=== PATIENT | male | born 1985 | race Caucasian/White ===

== ENCOUNTER 2017-02-12 19:29 | Emergency (ER) | payer OTHER ==
--- NOTE | ~2017-02-12 | CT2 ---
[facility] A Service of [facility] RADIOLOGY TEXT RESULTS PATIENT: AKHIL MURCIA LOCATION: SED : 85 UNIT #: [id number] AGE: [address]: Donavon Quinonez MD SEX: M ORDER DR: [id number] [facility] [address] [place], [place] [address] [id number] E MR#: [id number] Acc #: [id number] NAME: AKHIL MURCIA. : 1985 SEX: M STUDY DATE/TIME: 02/13/2017 0:19 UNIT: SED ROOM: STUDY DESCRIPTION: CT Abd and Pelv W Cont Attending Physician: Donavon Quinonez M.D. Ordering Physician: Donavon Quinonez M.D. Primary Care Physician: Primary Care Physician No MEDICAL IMAGING REPORT This report is preliminary unless electronic signature is present EXAM CT abdomen and pelvis with contrast INDICATIONS Lower abdomen pain for a few hours, nausea for 1 day. No comparison. TECHNIQUE The patient was given 100 mL of Isovue-370 and axial 5 mm images were obtained through the abdomen and pelvis. This CT exam was performed with one or more of the following radiation dose reduction techniques: Automatic exposure control, adjustment of mA and/or kV according to patient size, and iterative reconstruction. FINDINGS Lung bases are clear. Patient size causes the images to be very grainy. The liver, gallbladder, spleen, pancreas, adrenal glands and kidneys are normal in appearance. The aorta is normal in size and there is no adenopathy. The bowel is normal. The bladder and prostate gland are normal. The bones are unremarkable. There is an anterior abdominal wall hernia. It contains fat only. The opening through the abdominal wall is about 15 mm in diameter. This is at the umbilicus. IMPRESSION 1. There is an anterior abdominal wall hernia containing fat only, without evidence of infarction. This is at the level of the umbilicus. 2. The study is somewhat limited by patient's size. 3. Otherwise, the study is normal. Dictated by... Alf Pride M.D. [facility] A Service of [facility] RADIOLOGY TEXT RESULTS PATIENT: AKHIL MURCIA LOCATION: SED : 85 UNIT #: [id number] AGE: [address]: Donavon Quinonez MD SEX: M ORDER DR: THIS IS AN ELECTRONICALLY VERIFIED REPORT Alf Pride M.D. at 02/13/2017 5:04 AM NOELLE/malgorzata TD: 02/13/2017 01:56 JOB #: [id number] MEDICAL IMAGING REPORT Page 1 of 1 COPY
[~2017-02-12 19:29] MED LIST: BENZONATATE PO; FAMVIR500 MG PO; PROZAC PO; RISPERIDONE PO; TOPAMAX PO; VICODIN 5/500 T1 TAB PO; ZITHROMAX500 MG PO; ZYRTEC-D TABLE1 EACH PO
[2017-02-12 20:18] LABS: BASOPHIL% 0.3 % (0-2.5); EOSINOPHIL# 0.1 X10e3 (0-0.7); EOSINOPHIL% 1.1 % (0.0-7.0); HEMATOCRIT 42.5 % (38.0-50.0); HEMOGLOBIN 14.1 gm/dL (13.0-16.0); LYMPHOCYTE# 1.3 X10e3 (1.0-3.5); LYMPHOCYTE% 10.8 % (17.0-45.0); MEAN CELL VOLUME 90.6 FL (83-96); MEAN CORPUSCULAR HEMOGLOBIN 30.1 PG (28-34); MEAN CORPUSCULAR HGB CONC 33.3 g/dL (30-36); MEAN PLATELET VOLUME 7.3 FL (6.5-11.5); MONOCYTE# 0.7 X10e3 (0-1.0); MONOCYTE% 6.2 % (3.0-12.0); NEUTROPHIL# 9.5 X10e3 (1.5-7.1); NEUTROPHIL% 81.6 % (40-75); PLATELET COUNT 269 X10e3 (140-420); RED BLOOD COUNT 4.69 X10e (3.90-5.60); RED CELL DISTRIBUTION WIDTH 14.6 % (11.0-15.5); WHITE BLOOD COUNT 11.7 X10e3 (4.0-10.5)
[2017-02-12 20:19] LABS: DIFF IND NO
[2017-02-12 20:33] LABS: INR 1.1; PROTHROMBIN TIME (PATIENT) 11.9 SECONDS (9.5-12.4)
[2017-02-12 20:40] LABS: PARTIAL THROMBOPLASTIN TIME 33.2 SECONDS (25.6-38.1)
[2017-02-12 20:42] LABS: ALBUMIN SERUM 4.2 g/dL (3.5-5.0); BILIRUBIN, DIRECT 0.1 mg/dL (0.0-0.2); BILIRUBIN,INDIRECT 0.2 mg/dL (0.0-0.9); BILIRUBIN,TOTAL 0.3 mg/dL (0.2-2.0); BUN/CREATININE RATIO 13.75; CALCIUM SERUM 9.1 mg/dL (8.4-10.2); CREATININE SERUM 0.8 mg/dL (0.6-1.4); GLOM FILT RATE Estimated 119.1 mL/min (>60); POTASSIUM 4.4 mmol/L (3.5-5.1); PROTEIN TOTAL SERUM 7.9 g/dL (6.0-8.3)
[2017-03-09] MEDS ORDERED: NO MEDICATIONS (16:02)
== END 2017-02-13 01:21 | disposition home or self-care (01) ==
LOC: SED 19:29
PROVIDERS: Emergency Medicine
DX: K43.9 Ventral hernia without obstruction or gangrene (principal); Z88.0 Allergy status to penicillin
CPT/HCPCS: 36415; 74177; 80048; 80076; 82150; 83690; 85025; 85610; 85730; 96374; 96375; 96376; 99284; J2270; J2405; Q9967

== ENCOUNTER 2017-03-07 00:14 | Emergency (ER) | payer OTHER ==
[2017-03-07 01:22] LABS: BASOPHIL% 0.4 % (0-2.5); DIFF IND NO; EOSINOPHIL# 0.1 X10e3 (0-0.7); EOSINOPHIL% 1.1 % (0.0-7.0); HEMATOCRIT 43.7 % (38.0-50.0); HEMOGLOBIN 14.4 gm/dL (13.0-16.0); LYMPHOCYTE# 1.2 X10e3 (1.0-3.5); LYMPHOCYTE% 10.4 % (17.0-45.0); MEAN CELL VOLUME 91.5 FL (83-96); MEAN CORPUSCULAR HEMOGLOBIN 30.1 PG (28-34); MEAN CORPUSCULAR HGB CONC 32.9 g/dL (30-36); MEAN PLATELET VOLUME 7.6 FL (6.5-11.5); MONOCYTE# 0.7 X10e3 (0-1.0); NEUTROPHIL# 9.6 X10e3 (1.5-7.1); NEUTROPHIL% 82.1 % (40-75); PLATELET COUNT 276 X10e3 (140-420); RED BLOOD COUNT 4.78 X10e (3.90-5.60); RED CELL DISTRIBUTION WIDTH 13.9 % (11.0-15.5); WHITE BLOOD COUNT 11.7 X10e3 (4.0-10.5)
[2017-03-07 01:40] LABS: ALBUMIN SERUM 4.3 g/dL (3.5-5.0); BILIRUBIN,TOTAL 0.6 mg/dL (0.2-2.0); CALCIUM SERUM 9.5 mg/dL (8.4-10.2); GLOM FILT RATE Estimated 99.9 mL/min (>60); POTASSIUM 4.1 mmol/L (3.5-5.1); PROTEIN TOTAL SERUM 8.6 g/dL (6.0-8.3)
[2017-03-09] MEDS ORDERED: NO MEDICATIONS (16:02)
== END 2017-03-07 02:55 | disposition home or self-care (01) ==
LOC: SED 00:14
DX: K43.9 Ventral hernia without obstruction or gangrene (principal); Z88.0 Allergy status to penicillin
CPT/HCPCS: 36415; 80053; 85025; 96361; 96374; 96375; 99284; J2270; J2405

== ENCOUNTER → 2017-03-09 | Day surgery (SDC) | payer OTHER ==
[~2017-03-09] MED LIST changes: +NO MEDICATIONS
--- NOTE | ~2017-03-09 | OR ---
Unit #: [id number] #: [id number] Patient: AKHIL MURCIA [id number] [address] [address] [id number] O MR#: [id number] NAME: AKHIL MURCIA. ROOM: Date of Procedure: 03/09/2017 Admission Date: 03/09/2017 Surgeon: Donavon Caldera M.D. : 1985 Attending Physician: Donavon Caldera M.D. OPERATIVE REPORT PREOPERATIVE DIAGNOSIS Incarcerated ventral hernia. POSTOPERATIVE DIAGNOSIS Incarcerated ventral hernia 2 cm. PROCEDURE PERFORMED Laparoscopic ventral hernia repair of incarcerated ventral hernia 2 cm with 6-inch Ventralight circular mesh. [employer] None. ANESTHESIA General endotracheal anesthesia. ESTIMATED BLOOD LOSS Minimal. IV FLUIDS 800 crystalloid. COMPLICATIONS None. INDICATIONS FOR PROCEDURE The patient is a 31-year-old with chronic morbid obesity, who presents with incarcerated ventral hernia. DESCRIPTION OF PROCEDURE The patient was taken to the operating theater and placed in supine position. General anesthesia was induced. The abdomen was prepped and draped. A 5-mm Optiview trocar was placed in the left upper quadrant without difficulty. The abdomen was insufflated to 15 mmHg with CO2. Under direct vision, I placed left lower quadrant 10 mm, right lower quadrant 5 mm. General inspection of the abdomen revealed an incarcerated hernia. This was reduced with gentle traction. I then placed a 6-inch Ventralight patch. This was held in place with single-stranded Vicryl suture and delivered transcutaneous. I then secured with CapSure tacking device in a circumferential pattern. This covered the defect by at least 5 cm in all circumference. Hemostasis was adequate. I removed the ports under direct vision with no evidence of abdominal hemorrhage. The wound Unit #: [id number] #: [id number] Patient: AKHIL MURCIA was closed with 4-0 Vicryl and the sutures were cut at skin level. The patient tolerated the procedure well and sent to recovery room in good condition. Dictated by... Donavon Caldera M.D. JNO/shazial TD: 03/10/2017 02:05 JOB #: [id number] OPERATIVE REPORT Page 1 of 1 X Donavon Caldera MD PROCEDURE OPERATIVE NOTE
== END | disposition home or self-care (01) ==
LOC: CSUR 06:46
DX: K43.6 Other and unspecified ventral hernia with obstruction, without gangrene (principal); Z88.0 Allergy status to penicillin; E66.01 Morbid (severe) obesity due to excess calories; Z68.44 Body mass index [BMI] 60.0-69.9, adult; J30.9 Allergic rhinitis, unspecified; Z87.891 Personal history of nicotine dependence
CPT/HCPCS: C1781; J0131; J0330; J1100; J1644; J2250; J2405; J2710; J3010; J3370

== ENCOUNTER 2017-03-13 21:36 | Emergency (ER) | payer OTHER ==
--- NOTE | ~2017-03-13 | CT4 ---
[facility] A Service of [facility] RADIOLOGY TEXT RESULTS PATIENT: AKHIL MURCIA LOCATION: SED : 85 UNIT #: [id number] AGE: [address]: Sana Joe MD SEX: M ORDER DR: [id number] [address] [address] [id number] E MR#: [id number] Acc #: [id number] NAME: AKHIL MURCIA. : 1985 SEX: M STUDY DATE/TIME: 03/13/2017 22:35 UNIT: SED ROOM: STUDY DESCRIPTION: CT Abd and Pelv Wo Cont Attending Physician: Sana Joe M.D. Ordering Physician: Sana Joe M.D. Primary Care Physician: Neha Alvarez A.P.R.N. MEDICAL IMAGING REPORT This report is preliminary unless electronic signature is present. EXAM CT abdomen and pelvis INDICATIONS Generalized abdominal pain. Hernia repair on 03/09/2017. TECHNIQUE CT of the abdomen and pelvis without contrast. Coronal and sagittal reconstructions were obtained. COMPARISON CT abdomen and pelvis 02/13/2017. FINDINGS ABDOMEN: Noncontrast evaluation of the solid abdominal organs and the gallbladder are within normal limits. The bowel is not dilated. The appendix is normal. No enlarged retroperitoneal or mesenteric lymph nodes. The abdominal aorta is normal in caliber. Patient has had a umbilical hernia repair. There is some gas within the soft tissues of the abdominal fat indicative of the recent procedure. There is increased volume of herniated fat at the region of the umbilicus. This is presumably due to a recurrent hernia along the superior margin of the mesh repair. I would correlate with the operative note to make sure the herniated fat was not excluded during the hernia repair. There is some mild stranding around the anterior abdominal wall as well as some new stranding within the herniated fat. PELVIS: No pelvic mass or free pelvic fluid. The bladder is unremarkable. No acute osseous abnormalities. [facility] A Service [facility] RADIOLOGY TEXT RESULTS PATIENT: DIVINA,AKHIL B LOCATION: SED : 85 UNIT #: [id number] AGE: [address]: Sana Joe MD SEX: M ORDER DR: IMPRESSION 1. Umbilical hernia has increased in size since the 02/13/2017 comparison. Patient has undergone anterior abdominal hernia repair. This appears to be recurrent hernia as there is increased fat within the hernia sac. Please correlate with the operative note, however as occasionally the herniated fat will be excluded during the hernia repair. 2. Stranding in the anterior abdominal wall and subcutaneous emphysema is likely due to the recent procedure. Dictated by... Yohan Aguilera M.D. THIS IS AN ELECTRONICALLY VERIFIED REPORT Yohan Aguilera M.D. at 03/14/2017 11:16 PM RPC/rnr TD: 03/14/2017 03:47 JOB #: [id number] MEDICAL IMAGING REPORT Page 1 of 1
[2017-03-13 22:30] LABS: BASOPHIL# 0.1 X10e3 (0-0.3); BASOPHIL% 0.6 % (0-2.5); EOSINOPHIL# 0.3 X10e3 (0-0.7); EOSINOPHIL% 2.5 % (0.0-7.0); HEMATOCRIT 40.9 % (38.0-50.0); HEMOGLOBIN 13.9 gm/dL (13.0-16.0); LYMPHOCYTE# 1.6 X10e3 (1.0-3.5); LYMPHOCYTE% 14.7 % (17.0-45.0); MEAN CORPUSCULAR HEMOGLOBIN 30.5 PG (28-34); MEAN CORPUSCULAR HGB CONC 33.9 g/dL (30-36); MEAN PLATELET VOLUME 7.2 FL (6.5-11.5); MONOCYTE# 0.9 X10e3 (0-1.0); MONOCYTE% 8.1 % (3.0-12.0); NEUTROPHIL# 8.3 X10e3 (1.5-7.1); NEUTROPHIL% 74.1 % (40-75); PLATELET COUNT 266 X10e3 (140-420); RED BLOOD COUNT 4.55 X10e (3.90-5.60); RED CELL DISTRIBUTION WIDTH 13.7 % (11.0-15.5); WHITE BLOOD COUNT 11.1 X10e3 (4.0-10.5)
[2017-03-13 22:31] LABS: DIFF IND NO
[2017-03-13 22:49] LABS: BUN/CREATININE RATIO 12.5; CALCIUM SERUM 8.9 mg/dL (8.4-10.2); CREATININE SERUM 0.8 mg/dL (0.6-1.4); GLOM FILT RATE Estimated 119.1 mL/min (>60); POTASSIUM 3.5 mmol/L (3.5-5.1)
== END 2017-03-14 00:31 | disposition home or self-care (01) ==
LOC: SED 21:36
PROVIDERS: Student in an Organized Health Care Education/Training Program
DX: R10.9 Unspecified abdominal pain (principal); Z88.0 Allergy status to penicillin
CPT/HCPCS: 36415; 74176; 80048; 85025; 99284